=== PATIENT | female | born 1985 | race Caucasian/White ===

== ENCOUNTER 2017-12-06 18:39 | Emergency (ER) | payer OTHER | END 2017-12-06 20:44 | disposition home or self-care (01) | LOC: M ED 18:39 | DX: M54.41 Lumbago with sciatica, right side (principal); M51.36 Other intervertebral disc degeneration, lumbar region; Z79.899 Other long term (current) drug therapy | CPT/HCPCS: 99282 ==

== ENCOUNTER → 2018-02-20 | Outpatient (REF) | payer OTHER | LOC: M SFHCLERA 10:16 | DX: J02.9 Acute pharyngitis, unspecified (principal) ==

== ENCOUNTER 2018-11-18 14:40 | Emergency (ER) | payer OTHER ==
[~2018-11-18] VITALS: Ht 177.8 cm; Wt 86.4 kg
[~2018-11-18 14:40] MED LIST: AMBI10TA PO; DICL75TA PO; PAXI40TA10 PO; ULTR50TA8 PO
[2018-11-18] MEDS ORDERED: ADACEL/BOOSTRIX VACCINE (DIPHTH/PERTUSS/ACELL/TETANUS)0.5ML SYR (90715) IM ONE (16:15)
[2018-11-18] MEDS ORDERED: LIDOCAINE 1% MDV 20ML VIAL SC ONE (16:15)
--- NOTE | 2018-11-18 16:40 | REP ---
Clinical: Trauma. Technique: AP, lateral, bilateral oblique views left third digit . Findings: The osseous structures and joint spaces are intact and normal. There is no evidence for acute fracture or dislocation. Surrounding soft tissues are unremarkable. No subcutaneous emphysema or radiodense foreign body. Impression: No acute fracture or dislocation. Electronically Signed by Chris Rush MD 11/18/2018 04:32 P
[2018-11-18 17:24] VITALS: BP 123/66
== END 2018-11-18 17:33 | disposition home or self-care (01) ==
LOC: M ED 14:40
DX: S61.213A Laceration without foreign body of left middle finger without damage to nail, initial encounter (principal); W27.2XXA Contact with scissors, initial encounter; Y92.89 Other specified places as the place of occurrence of the external cause; Y93.K3 Activity, grooming and shearing an animal; Y99.0 Civilian activity done for income or pay; G89.29 Other chronic pain; M54.5 Low back pain; F41.9 Anxiety disorder, unspecified; Z79.899 Other long term (current) drug therapy